=== PATIENT | male | born 1950 | race Caucasian/White ===

== ENCOUNTER 2020-12-06 10:30 | Observation (INO) | payer MEDICARE ==
[2020-12-06] VITALS (7 sets, daily range): BP systolic 91–119; BP diastolic 46–69
[~2020-12-06] VITALS: Ht 175.3 cm; Wt 77.4 kg
--- NOTE | 2020-12-06 11:17 | PHYS DOC ---
Past History Past Surgical History: No Surgical History Alcohol Use: None General Adult EDM: Chief Complaint: MULTIPLE COMPLAINTS HPI: HPI: 70-year-old male presents with vomiting and nausea for last 1 week. The patient was out fishing at different legs in [place]. He stopped at a [employer] and had dinner. Around 1 AM he woke up and had violent vomiting and diarrhea for several hours. He continues to have diarrhea daily with some nausea but no vomiting. He states that it is difficult to eat anything. He can have a small cup of pudding or a boost shake. He gets nauseated but does not vomit. He still has watery, nonbloody diarrhea. He decided come in today for evaluation. He also has had some chest tightness and a mild feeling of shortness of breath. He felt similar to this when he had a heart attack a year and a half ago. The patient is not vaccinated for COVID-19. Review of Systems: Review of Systems: Constitutional: Denies fever or chills Eyes: Denies change in visual acuity HENT: Denies nasal congestion or sore throat Respiratory: Shortness of breath Cardiovascular: Chest pain GI: Epigastric abdominal pain, nausea, diarrhea : Denies dysuria Musculoskeletal: Denies back pain or joint pain Integument: Denies rash Neurologic: Denies headache, focal weakness or sensory changes Endocrine: Denies polyuria or polydipsia Lymphatic: Denies swollen glands Psychiatric: Denies depression or anxiety Allergies: Allergies: Allergies Coded Allergies Type Severity Reaction Last Updated Verified No Known Drug Allergies 12/06/20 No Physical Exam: PE: Constitutional: Well developed, well nourished, no acute distress, non-toxic appearance. [] HENT: Normocephalic, atraumatic, bilateral external ears normal, oropharynx moist, no oral exudates, nose normal. [] Eyes: PERRLA, EOMI, conjunctiva normal, no discharge. [] Neck: Normal range of motion, no tenderness, supple, no stridor. [] Cardiovascular: Heart rate 85, regular rhythm, no murmur [] Lungs & Thorax: Bilateral breath sounds clear to auscultation [] Abdomen: Bowel sounds normal, soft, epigastric tenderness, no masses, no pulsatile masses. [] Skin: Warm, dry, no erythema, no rash. [] Back: No tenderness, no CVA tenderness. [] Extremities: No tenderness, no cyanosis, no clubbing, ROM intact, no edema. [] Neurologic: Alert and oriented X 3, normal motor function, normal sensory function, no focal deficits noted. [] Psychologic: Affect normal, judgement normal, mood normal. [] Current Patient Data: Vital Signs: Vital Signs Date Time Temp Pulse Resp B/P (MAP) Pulse Ox O2 Delivery O2 Flow Rate FiO2 12/06/20 10:39 98.7 83 28 102/55 88 Room Air EKG: EKG: Sinus rhythm, rate 85, leftward axis, no ST elevation or depression. [] Radiology/Procedures: Radiology/Procedures: [] Impressions: Exam: CT abdomen/pelvis without intravenous contrast Indication: Vomiting, epigastric Comparison: None Technique: Helical CT imaging performed of the abdomen and pelvis without the use of intravenous contrast. Sagittal and coronal reformats were obtained. One or more of the following individualized dose reduction techniques were utilized for this examination: 1. Automated exposure control 2. Adjustment of the mA and/or kV according to patient size 3. Use of iterative reconstruction technique. Findings: Inherently limited evaluation without intravenous contrast. There is also motion artifact in the upper abdomen. Lower chest: There are patchy consolidative opacities in the posterior right lower lobe. The heart is normal in size. Liver: Normal noncontrast appearance of liver. Gallbladder/Biliary Tree: Normal. Pancreas: Mild pancreatic atrophy.. Spleen: No symmetrically. There are calcified splenic granulomas.. Adrenal Glands: Normal. Kidneys/Ureters/Bladder: There is a 1.6 cm simple left renal cysts. No hydronephrosis or nephrolithiasis. Ureters and bladder are normal. Reproductive Organs: Prostate gland is mildly enlarged. Stomach, small bowel, and colon: Small hiatal hernia. There is no small bowel obstruction. Mild sigmoid diverticulosis. No acute diverticulitis. There is fluid in the colon consistent diarrheal disease. Appendix is normal. Vasculature: Abdominal aorta is normal in caliber. Minimal calcified atherosclerosis. Lymph Nodes: No lymphadenopathy. Peritoneum and retroperitoneum: No free fluid or free air. Bones: No acute osseous abnormality. There is severe facet arthrosis at L4-L5 and L5-S1 and 5 mm anterolisthesis of L4 on L5. Miscellaneous: Tiny fat-containing umbilical hernia and fat-containing right inguinal hernia. Impression: 1. Fluid in the colon consistent with diarrheal disease. 2. Small hiatal hernia. 3. Mildly enlarged prostate gland. 4. Small fat-containing umbilical and right inguinal hernias. 5. Mild patchy opacities in the posterior right lower lobe could be atelectasis or pneumonia. Electronically signed by: Gisella Golden MD (12/06/2020 12:30 PM) [id number] DICTATED AND SIGNED BY: GISELLA GOLDEN MD DATE: 12/06/20 1222 CC: KENNETH TIMMONS DO; PCP,NO ~MTH0 0 EXAM: XR CHEST 1V 12/06/2020 11:20 AM CLINICAL INDICATION: Shortness of breath COMPARISON: None TECHNIQUE: AP upright view of the chest FINDINGS: The heart and mediastinum are normal. Lungs are well-expanded and clear. No consolidation, pleural effusion, or pneumothorax. Pulmonary vascularity is normal. The thoracic skeleton is intact. IMPRESSION: No acute cardiopulmonary abnormality. Electronically signed by: Gisella Golden MD (12/06/2020 11:53 AM) [id number] DICTATED AND SIGNED BY: GISELLA GOLDEN MD DATE: 12/06/20 1153 CC: KENNETH TIMMONS DO; PCP,NO ~MTH0 0 Heart Score: C/O Chest Pain: Yes HEART Score for Chest Pain: HEART Score for Chest Pain Response (Comments) Value History Slighlty/Non-Suspicious 0 ECG Normal 0 Age > 65 2 Risk Factors >3 Risk Factors or Hx CAD 2 Troponin < Normal Limit 0 Total 4 Risk Factors: Risk Factors: DM, Current or recent (<one month) smoker, HTN, HLP, family history of CAD, obesity. Risk Scores: Score 0 - 3: 2.5% MACE over next 6 weeks - Discharge Home Score 4 - 6: 20.3% MACE over next 6 weeks - Admit for Clinical Observation Score 7 - 10: 72.7% MACE over next 6 weeks - Early Invasive Strategies Course & Med Decision Making: Course & Med Decision Making Pertinent Labs and Imaging studies reviewed. (See chart for details) The patient's labs are significant for creatinine of 3.1. I have no comparison for baseline. His chest x-ray is unremarkable. His CT of the abdomen and pelvis shows fluid in the colon consistent with diarrheal illness. Incidentally there is some pulmonary atelectasis. See official read more details. His troponin is negative. The patient's heart score is a 4 given his history. He also has an elevated creatinine should be monitored. It may be due to simple dehydration but I am not sure. I spoke with Dr. Peacock and he has accepted the patient for admission. Just prior to going up the hill, patient's blood pressure decreased. I have ordered a second liter normal saline and fluids on the floor. He will go to the ICU. [] Dragon Disclaimer: Dragon Disclaimer: This electronic medical record was generated, in whole or in part, using a voice recognition dictation system. Departure Departure: Impression: Primary Impression: Elevated serum creatinine Additional Impression: Chest pain Qualified Codes: R07.9 - Chest pain, unspecified Disposition: ADMITTED INPATIENT Admitting Physician: Angus Peacock Condition: STABLE Referrals: PCP,NO (PCP) KENNETH TIMMONS DO Dec 06, 2020 11:17
[2020-12-06 11:21] LABS: BASO # 0.1 x10^3/uL (0.0-0.2); BASO % 0 % (0-3); EOS % 0 % (0-3); HEMATOCRIT 38.3 % (39.0-53.0); HEMOGLOBIN 13.1 g/dL (13.0-17.5); LYMPH # 1.4 x10^3/uL (1.0-4.8); LYMPH % 7 % (24-48); MEAN CORPUSCULAR HEMOGLOBIN 30 pg (25-35); MEAN CORPUSCULAR HGB CONC 34 g/dL (31-37); MEAN CORPUSCULAR VOLUME 89 fL (79-100); MONO # 1.5 x10^3/uL (0.0-1.1); MONO % 8 % (0-9); NEUT # 16.8 x10^3uL (1.8-7.7); NEUT % 85 % (31-73); PLATELET COUNT 207 x10^3/uL (140-400); RED BLOOD COUNT 4.31 x10^6/uL (4.30-5.70); RED CELL DISTRIBUTION WIDTH 13.3 % (11.5-14.5); WHITE BLOOD COUNT 19.7 x10^3/uL (4.0-11.0)
[2020-12-06 11:29] LABS: CALCIUM 8.6 mg/dL (8.5-10.1); CREATININE 3.1 mg/dL (0.7-1.3)
[2020-12-06] MEDS ORDERED: IOHEXOL 300 MG/ML 75 ML VIAL. IV ONE (11:30)
[2020-12-06 11:35] LABS: ALBUMIN 3.5 g/dL (3.4-5.0); ALBUMIN/GLOBULIN RATIO 0.9 (1.0-1.7); TOTAL BILIRUBIN 0.8 mg/dL (0.2-1.0); TOTAL PROTEIN 7.2 g/dL (6.4-8.2)
--- NOTE | 2020-12-06 11:40 | EKG ---
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
--- NOTE | 2020-12-06 11:55 | RAD ---
EXAM: XR CHEST 1V 12/06/2020 11:20 AM CLINICAL INDICATION: Shortness of breath COMPARISON: None TECHNIQUE: AP upright view of the chest FINDINGS: The heart and mediastinum are normal. Lungs are well-expanded and clear. No consolidatio n, pleural effusion, or pneumothorax. Pulmonary vascularity is normal. The thoracic skeleton is int act. IMPRESSION: No acute cardiopulmonary abnormality. Electronically signed by: Gisella Golden MD (12/06/2020 11:53 AM) [id number]
--- NOTE | 2020-12-06 12:32 | RAD ---
Exam: CT abdomen/pelvis without intravenous contrast Indication: Vomiting, epigastric Comparison: None Technique: Helical CT imaging performed of the abdomen and pelvis without the use of intravenous cont rast. Sagittal and coronal reformats were obtained. One or more of the following individualized dose reduction techniques were utilized for this examinat ion: 1. Automated exposure control 2. Adjustment of the mA and/or kV according to patient size 3. Use of iterative reconstruction technique. Findings: Inherently limited evaluation without intravenous contrast. There is also motion artifact in the uppe r abdomen. Lower chest: There are patchy consolidative opacities in the posterior right lower lobe. The heart is normal in size. Liver: Normal noncontrast appearance of liver. Gallbladder/Biliary Tree: Normal. Pancreas: Mild pancreatic atrophy.. Spleen: No symmetrically. There are calcified splenic granulomas.. Adrenal Glands: Normal. Kidneys/Ureters/Bladder: There is a 1.6 cm simple left renal cysts. No hydronephrosis or nephrolithia sis. Ureters and bladder are normal. Reproductive Organs: Prostate gland is mildly enlarged. Stomach, small bowel, and colon: Small hiatal hernia. There is no small bowel obstruction. Mild sigmo id diverticulosis. No acute diverticulitis. There is fluid in the colon consistent diarrheal disease. Appendix is normal. Vasculature: Abdominal aorta is normal in caliber. Minimal calcified atherosclerosis. Lymph Nodes: No lymphadenopathy. Peritoneum and retroperitoneum: No free fluid or free air. Bones: No acute osseous abnormality. There is severe facet arthrosis at L4-L5 and L5-S1 and 5 mm ante rolisthesis of L4 on L5. Miscellaneous: Tiny fat-containing umbilical hernia and fat-containing right inguinal hernia. Impression: 1. Fluid in the colon consistent with diarrheal disease. 2. Small hiatal hernia. 3. Mildly enlarged prostate gland. 4. Small fat-containing umbilical and right inguinal hernias. 5. Mild patchy opacities in the posterior right lower lobe could be atelectasis or pneumonia. Electronically signed by: Gisella Golden MD (12/06/2020 12:30 PM) [id number]
[2020-12-06] MEDS ORDERED: CONTRAST GIVEN. MC PRN (13:00)
[2020-12-06] MEDS ORDERED: IV NORMAL SALINE 1,000ML 1,000 ML IV ONE ×2 (13:00→15:00)
[2020-12-06 13:47] LABS: % ATYL 3 % (0-0); % BANDS 13 % (0-9); % LYMPHS 5 % (24-48); % MONOS 10 % (0-10); % SEGS 69 % (35-66); PLT ESTIMATE ADEQUATE (ADEQUATE)
[2020-12-06] MEDS ORDERED: ONDANSETRON PF 4 MG/2 ML VIAL. IVP PRN (15:00)
[2020-12-06 15:32] LABS: BILIRUBIN,URINE SMALL (NEG); CLARITY,URINE CLEAR; COLOR,URINE YELLOW; GLUCOSE,URINE NEG (NEG); NITRITE,URINE NEG (NEG); UROBILINOGEN,URINE 0.2 mg/dL (0.2 mg/dL)
[2020-12-06 15:34] LABS: BACTERIA,URINE MOD /HPF (0-FEW); GRANULAR CASTS,URINE MANY /HPF; HYALINE CASTS, URINE MOD /HPF; RBC,URINE OCC /HPF (0-2); SQUAMOUS EPITHELIAL CELL,UR FEW /LPF
--- NOTE | 2020-12-06 18:09 | NUR ---
ADMISSION Pt admitted by Dr. Peacock for elevated creat, hypotension and chest pain. Pt states he was on a fishing trip last week with his nephew. Pt became very ill with nausea, vomiting and diarrhea after eating a DQ sandwich. Symptoms have continued for past 7 days. Issues with admit order prevented completion of admission on this shift. Admission to be completed by night RN. Orders from Dr. Peacock started. Will continue to monitor for remainder of shift CC RN
[2020-12-06] MEDS ORDERED: PANTOPRAZOLE IV 40 MG VIAL. IVP ONE (18:15)
[2020-12-06] MEDS ORDERED: UBID50TA PO (18:28)
[2020-12-06] MEDS ORDERED: LIPITOR80 MG PO (18:28)
[2020-12-06] MEDS ORDERED: METO25TA4 PO (18:28)
[2020-12-06] MEDS ORDERED: ASPI-630 PO (18:28)
[2020-12-06] MEDS ORDERED: LISI20TA18 PO (18:28)
[2020-12-06] MEDS ORDERED: HYDR12.58 PO (18:28)
[2020-12-06] MEDS ORDERED: AMLO-187 PO (18:28)
[2020-12-06] MEDS: IV NORMAL SALINE 1,000ML 1,000 ML IV SCH (18:30)
--- NOTE | 2020-12-06 19:39 | HP ---
ADMIT DATE: 12/06/2020 HISTORY OF PRESENT ILLNESS: The patient is a 70-year-old male patient who came to the Emergency Room complaining of nausea and vomiting for the last week. The patient was [place] in [place] _[place] and had dinner around 4 p.m. in the afternoon and around 1:00 a.m., he woke up and had violent vomiting and diarrhea for several hours. He continued to have diarrhea daily with some nausea, but no vomiting. He stated it is difficult to eat anything. He can have a small cup of ____ or Boost shake. He gets nauseated, but does not vomited. He still has watery, nonbloody diarrhea. He has actually had 4 episodes of diarrhea this morning. The last one was immediately before he arrived to the Emergency Room. As his symptoms continued and has some chest tightness and a mild feeling of shortness of breath that sounds similar to when he has his heart attack a year ago, he decided to come to the Emergency Room. The patient is not vaccinated for COVID-19 by choice. He was extensively evaluated in the Emergency Room and has had lab work, which showed that his white cell count was high at 19,700; hemoglobin 13; hematocrit 38; MCV 89 and platelet count of 207,000. His chemistry showed that his BUN and creatinine are high at 42 and 3.1. Unfortunately, it is difficult to know whether this is acute on chronic or whether he has chronic kidney disease as he does not have a primary care physician and the last time he was seen at [facility] year and a half ago and from there he was transferred to [facility] when he has his heart attack. He was aggressively hydrated and was admitted to the ICU for further evaluation and treatment. Apparently, he was doing fine, but when his way to the hospital, he dropped his blood pressure and therefore decided to admit him to the ICU. PAST MEDICAL HISTORY: Significant for hypertension, hyperlipidemia, coronary artery disease, status post myocardial infarction treated with PCI and stent deployment a year and half ago. He has symptoms consistent with benign prostatic hypertrophy. He has a remote history of hepatitis probably A, when he was 35 years old. PAST SURGICAL HISTORY: Significant for PCI and stent deployment. ALLERGIES: No known drug allergies. MEDICATIONS: The patient is currently on a baby aspirin 81 mg once a day, CoQ10 once a day, lisinopril 20 mg twice a day, amlodipine 10 mg once a day, atorvastatin 80 mg at bedtime, chlorthalidone 25 mg once a day, and metoprolol tartrate 25 mg twice a day. FAMILY HISTORY: Has one brother is still alive. His sister at age of 60 because of complication of COPD. His father at age of 60. His mother is still alive at the age of 90. SOCIAL HISTORY: He is , has 2 daughters and 1 son. He never smoked, does not drink alcohol or recreational drugs. 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 REVIEW OF SYSTEMS: As per history of present illness. PHYSICAL EXAMINATION: GENERAL: When I saw him, he looked well and was clearly in no apparent respiratory distress. No pallor, jaundice, cyanosis, or thyromegaly. No jugular venous distention. No limb edema. VITAL SIGNS: His heart rate was 61, blood pressure 114/58, temperature was 98, respiratory rate was 19 and oxygen saturation was 97% on 2 liters of oxygen. HEAD, EYES, EARS, NOSE, AND THROAT: Normocephalic and atraumatic. NECK: Supple. HEART: Showed normal first and second heart sounds. No gallop, rub or murmur. CHEST: Clear to auscultation. No crepitation or rhonchi. ABDOMEN: Distended, soft, nontender. No guarding or rigidity. No organomegaly. All hernial orifice intact. Bowel sounds normal. NEUROLOGIC: He was awake, alert, responding appropriately. Cranial nerves intact. He moves extremities without difficulty. LABORATORY DATA: On arrival showed a serum sodium 137, potassium 4, chloride 99, bicarbonate 23, anion gap of 16, BUN 42, creatinine 2.1. Estimated GFR was 20 mL per minute. His glucose 142, calcium was 8.6. Total bilirubin, AST, ALT were normal. Alkaline phosphatase slightly elevated. Total protein 7.2, albumin was 3.5. Lipase was 101. His white cell count was 19,700; hemoglobin 38, hematocrit 89 and platelets 207,000 with a manual differential showed 85% polymorphs, 7% polycytes and 8% monocytes. ASSESSMENT: In summary, this is a 70-year-old male patient who was admitted with 1-week history of recurrent bouts of nausea, vomiting and diarrhea. He was found to have probably chronic or acute kidney injury with a BUN of 45 and creatinine 3.1. He has multiple medical problems including hypertension, hyperlipidemia, coronary artery disease, status post myocardial infarction treated with stent deployment, benign prostatic hypertrophy, remote history of hepatitis. He has a marked leukocytosis and a CT scan of the abdomen showed fluid in the colon consistent with diarrheal disease, small hiatal hernia, mildly enlarged prostate, small fat-containing umbilical and right inguinal hernias, mild patchy opacities in the posterior right lower lobe that could be atelectasis or pneumonia. PLAN: My plan is to hold all his medication, aggressively rehydrate him. I will also repeat all his labs again tomorrow and will decide the further management accordingly. SHARRON/CLAY DR: Eva TID: [id number]
[2020-12-07] VITALS (9 sets, daily range): BP systolic 97–118; BP diastolic 47–65
[2020-12-07] MEDS ORDERED: ACETAMINOPHEN 325 MG TABLET PO PRN ×2 (00:15→05:00)
[2020-12-07] MEDS: IV NORMAL SALINE 1,000ML 1,000 ML IV SCH ×2 (01:19→09:26)
--- NOTE | 2020-12-07 02:36 | NUR ---
PT with mild confusion noted, time. PT reoriented. PT given Tylenol for fever and continued to monitor.
[2020-12-07] MEDS ORDERED: IBUPROFEN 600 MG TABLET. PO ONE (04:30)
[2020-12-07] MEDS: PIPERACILLIN/TAZOBACTAM 2.25 GM in IV NORMAL SALINE 50ML 50 ML IV SCH ×2 (04:37→12:52)
[2020-12-07 04:43] LABS: BASO % 0 % (0-3); EOS % 0 % (0-3); HEMATOCRIT 32.6 % (39.0-53.0); HEMOGLOBIN 10.9 g/dL (13.0-17.5); LYMPH # 0.9 x10^3/uL (1.0-4.8); LYMPH % 6 % (24-48); MEAN CORPUSCULAR HEMOGLOBIN 31 pg (25-35); MEAN CORPUSCULAR HGB CONC 34 g/dL (31-37); MEAN CORPUSCULAR VOLUME 91 fL (79-100); MONO # 0.8 x10^3/uL (0.0-1.1); MONO % 6 % (0-9); NEUT # 12.4 x10^3uL (1.8-7.7); NEUT % 88 % (31-73); PLATELET COUNT 171 x10^3/uL (140-400); RED BLOOD COUNT 3.57 x10^6/uL (4.30-5.70); RED CELL DISTRIBUTION WIDTH 13.6 % (11.5-14.5); WHITE BLOOD COUNT 14.1 x10^3/uL (4.0-11.0)
[2020-12-07 04:55] LABS: ALBUMIN 2.7 g/dL (3.4-5.0); ALBUMIN/GLOBULIN RATIO 0.7 (1.0-1.7); CALCIUM 7.5 mg/dL (8.5-10.1); CREATININE 2.2 mg/dL (0.7-1.3); GFR 29.7; TOTAL BILIRUBIN 0.5 mg/dL (0.2-1.0); TOTAL PROTEIN 6.5 g/dL (6.4-8.2)
[2020-12-07] MEDS ORDERED: PANTOPRAZOLE IV 40 MG VIAL. IVP SCH (07:30)
[2020-12-07] MEDS ORDERED: LACTOBACILLUS RHAMNOSUS GG 1 CAPSULE. PO SCH (09:00)
--- NOTE | 2020-12-07 17:11 | NUR ---
Patient not confused at this time with slight fever of 99.8F. Decided to leave AMA after Dr. Peacock told him reasons why he shouldn't. Left with all belongings stating that he would be walking home.
== END 2020-12-07 17:00 | disposition left against medical advice (07) ==
LOC: ER 10:30 → ICU 17:27 → INTOOBSV 17:27
PROVIDERS: ADMIT Internal Medicine; ATTEND Internal Medicine
DX: R11.2 Nausea with vomiting, unspecified (principal); R19.7 Diarrhea, unspecified; D72.829 Elevated white blood cell count, unspecified; Z20.822 Contact with and (suspected) exposure to COVID-19; I11.0 Hypertensive heart disease with heart failure; I50.9 Heart failure, unspecified; I25.10 Atherosclerotic heart disease of native coronary artery without angina pectoris; I25.2 Old myocardial infarction; N17.9 Acute kidney failure, unspecified; N40.0 Benign prostatic hyperplasia without lower urinary tract symptoms; E78.5 Hyperlipidemia, unspecified; Z95.5 Presence of coronary angioplasty implant and graft
CPT/HCPCS: 36415; 71045; 74176; 80053; 81001; 83690; 84484; 85007; 85025; 87040; 87086; 87505; 93005; 96361; 96365; 96366; 96375; 96376; 99285; C9113; G0378; J2543; J7030; U0003; 96360; G0379